=== PATIENT | male | born 1950 | race Caucasian/White ===

== ENCOUNTER → 2016-09-27 | Outpatient (CLI) | payer MEDICARE, OTHER | END | disposition home or self-care (01) | LOC: GMAL 08:59 | PROVIDERS: ATTEND Family Medicine | DX: R19.7 Diarrhea, unspecified (principal) ==

== ENCOUNTER → 2016-10-03 | Outpatient (CLI) | payer MEDICARE, OTHER ==
--- NOTE | 2016-10-03 12:01 | CT ---
EXAM DESCRIPTION: Abdomen/Pelvis w/Contrast CLINICAL HISTORY: DIVERTICULITIS lower quadrant abdominal pain COMPARISON: None. TECHNIQUE: Postcontrast CT images of the abdomen and pelvis are obtained. CT scan done according to ALARA (As Low As Reasonably Achievable). FINDINGS: Visualized lung bases show a pleural-based noncalcified 6 mm pulmonary nodule in the right lower lobe on image 4. Liver is enlarged. Right lobe measures 20 cm AP at the right mid clavicular line. The liver is heterogeneous and decreased attenuation compared to the spleen without focal mass. The spleen, pancreas, adrenal glands, and gallbladder are unremarkable. Mild to moderate atherosclerotic disease of the arterial vasculature are seen. Kidneys show no obvious abnormal calcifications. No ureteral calcification or obstruction is seen. Small 5 mm cortical cyst of lower pole right kidney seen. Urinary bladder is contracted and not well evaluated. Prostate is mildly enlarged with moderate central calcifications. Prostate is hyperdense and indenting the floor of the urinary bladder. Recommend correlation with physical exam findings and PSA. The appendix is not clearly identified. No secondary signs of acute appendicitis are seen. No small bowel obstruction is seen. Mild scattered diverticuli of the colon are seen mainly in the sigmoid region. There is incomplete distention of the sigmoid colon. Question mild bowel wall thickening in the left lower quadrant without significant surrounding fat stranding or inflammatory changes. No free intraperitoneal air or drainable fluid collections are identified. No pathologic lymphadenopathy is seen. Osseous structures show no aggressive bony lesions. Moderate degenerative changes of the spine are seen. IMPRESSION: Colon diverticulosis without convincing CT evidence of acute diverticulitis. There is incomplete distention of the sigmoid colon likely resulting in mild bowel wall thickening in this region. Hepatomegaly with hepatic steatosis. Moderate atherosclerotic disease without aneurysmal dilatation of the aorta. Nonspecific 6 mm noncalcified pulmonary nodule in the right lower lobe. Consider follow-up CT imaging of the chest in 6-12 months to determine long-term stability of this finding. Electronically signed by: Landen Hale MD 10/03/2016 12:00 PM [employer] [employer]
== END | disposition home or self-care (01) ==
LOC: CT 08:02
PROVIDERS: ATTEND Family Medicine
DX: K57.32 Diverticulitis of large intestine without perforation or abscess without bleeding (principal)

== ENCOUNTER → 2016-10-08 | Outpatient (CLI) | payer MEDICARE, OTHER | END | disposition home or self-care (01) | LOC: LAB.O 08:58 | PROVIDERS: ATTEND Family Medicine | DX: R19.7 Diarrhea, unspecified (principal) ==

== ENCOUNTER → 2017-10-27 | Outpatient (CLI) | payer MEDICARE, OTHER | LOC: GMAL 11:30 | PROVIDERS: ATTEND Family Medicine | DX: D51.3 Other dietary vitamin B12 deficiency anemia (principal); R53.82 Chronic fatigue, unspecified; E55.9 Vitamin D deficiency, unspecified; Z12.5 Encounter for screening for malignant neoplasm of prostate | CPT/HCPCS: 82306; 82607; 84443; G0103 ==

== ENCOUNTER → 2018-01-01 | Outpatient (CLI) | payer MEDICARE, OTHER | LOC: GMAL 08:10 | PROVIDERS: ATTEND Family Medicine | DX: E83.52 Hypercalcemia (principal) ==

== ENCOUNTER → 2018-07-15 | Outpatient (CLI) | payer MEDICARE, OTHER | LOC: GMAL 11:46 | PROVIDERS: ATTEND Family Medicine | DX: E21.0 Primary hyperparathyroidism (principal); E55.9 Vitamin D deficiency, unspecified ==

== ENCOUNTER → 2018-10-28 | Outpatient (CLI) | payer MEDICARE, OTHER | LOC: GMAL 08:48 | PROVIDERS: ATTEND Family Medicine | DX: E21.0 Primary hyperparathyroidism (principal); I10 Essential (primary) hypertension ==

== ENCOUNTER → 2019-01-20 | Outpatient (CLI) | payer MEDICARE, OTHER | LOC: GMAL 10:15 | PROVIDERS: ATTEND Family Medicine | DX: R25.8 Other abnormal involuntary movements (principal); R30.0 Dysuria; I10 Essential (primary) hypertension; Z12.5 Encounter for screening for malignant neoplasm of prostate | CPT/HCPCS: 83735; G0103 ==

== ENCOUNTER → 2019-04-19 | Outpatient (CLI) | payer MEDICARE, OTHER | LOC: GMAL 10:36 | PROVIDERS: ATTEND Family Medicine | DX: E83.42 Hypomagnesemia (principal); E83.52 Hypercalcemia ==

== ENCOUNTER → 2020-02-10 | Outpatient (CLI) | payer MEDICARE, OTHER | LOC: GMAL 10:19 | PROVIDERS: ATTEND Family Medicine | DX: D51.3 Other dietary vitamin B12 deficiency anemia (principal); R53.82 Chronic fatigue, unspecified; E55.9 Vitamin D deficiency, unspecified; I10 Essential (primary) hypertension; E78.49 Other hyperlipidemia ==

== ENCOUNTER → 2020-06-28 | Outpatient (CLI) | payer MEDICARE, OTHER | LOC: YCFC.O 15:27 | PROVIDERS: ATTEND Nurse Practitioner Family | DX: Z20.828 Contact with and (suspected) exposure to other viral communicable diseases (principal) ==

== ENCOUNTER → 2020-08-29 | Outpatient (CLI) | payer MEDICARE, OTHER | LOC: GMAL 10:50 | PROVIDERS: ATTEND Family Medicine | DX: D51.3 Other dietary vitamin B12 deficiency anemia (principal); I10 Essential (primary) hypertension; R94.5 Abnormal results of liver function studies; E78.49 Other hyperlipidemia ==

== ENCOUNTER → 2020-09-05 | Outpatient (CLI) | payer MEDICARE, OTHER | LOC: GMAL 11:40 | PROVIDERS: ATTEND Family Medicine | DX: Z12.5 Encounter for screening for malignant neoplasm of prostate (principal) ==